=== PATIENT | female | born 1995 | race Caucasian/White ===

== ENCOUNTER 2023-11-21 05:57 | Observation (INO) | payer BC, OTHER ==
[~2023-11-21] VITALS: Ht 165.1 cm; Wt 78.0 kg
[2023-11-21] VITALS (8 sets, daily range): BP systolic 110–131; BP diastolic 63–94; TEMP 98–98.4; O2SAT 93–99
[~2023-11-21 05:57] MED LIST: LEVO50TA5 PO
[2023-11-21] MEDS ORDERED: ceFAZolin SOD 2 GM in IV 1 EA IV ONE (06:00)
[2023-11-21] MEDS ORDERED: LIDOCAINE 1% MDV 20ML VIAL As Ordered ONE (07:08)
[2023-11-21] MEDS ORDERED: EPINEPHrine INJ 1 MG/ML 1ML AMP As Ordered ONE (07:08)
[2023-11-21] MEDS ORDERED: ONDANSETRON 4MG 2ML VIAL As Ordered ONE (07:24)
[2023-11-21] MEDS ORDERED: LIDOCAINE 2% 100MG/5ML SDV (FOR ANES.) As Ordered ONE (07:24)
[2023-11-21] MEDS ORDERED: ROCURONIUM BROMIDE 50MG/5ML VIAL As Ordered ONE (07:24)
[2023-11-21] MEDS ORDERED: propofoL 200 MG/20 ML VIAL As Ordered ONE (07:24)
[2023-11-21] MEDS ORDERED: MIDAZOLAM INJ 2MG/2ML VIAL As Ordered ONE (07:25)
[2023-11-21] MEDS ORDERED: fentaNYL 250 MCG/5 ML INJECTION As Ordered ONE (07:25)
[2023-11-21] MEDS ORDERED: LR 1,000 ML IV SCH ×2 (07:25→20:00)
[2023-11-21] MEDS ORDERED: dexmedeTOMIDine (4MCG/ML)200MCG/50ML BTL (PRECEDEX) As Ordered ONE (07:34)
[2023-11-21] MEDS ORDERED: LACRILUBE (AKWA TEARS) OPHTH OINT 3.5GM As Ordered ONE (07:50)
[2023-11-21] MEDS ORDERED: ACETAMINOPHEN 1000MG 100ML IV BAG As Ordered ONE (07:50)
[2023-11-21] MEDS ORDERED: SUGAMMADEX SODIUM 500 MG/5 ML VIAL (BRIDION) As Ordered ONE (07:50)
[2023-11-21] MEDS: GENTAMICIN SULF 80MG/2ML VIAL As Ordered ONE (08:00)
[2023-11-21] MEDS: HEPARIN SOD (PORCINE) 5000UNITS/ML 1ML VIAL/SYRINGE SQ ONE (08:05)
[2023-11-21] MEDS ORDERED: METOCLOPRAMIDE INJ 10MG/2ML VIAL As Ordered ONE (08:59)
[2023-11-21] MEDS ORDERED: SEVOFLURANE INHAL SOLN 250 ML BTL As Ordered ONE (09:01)
[2023-11-21] MEDS ORDERED: HYDROmorphone HCL 2MG/ML 1ML VIAL As Ordered ONE (09:24)
[2023-11-21] MEDS ORDERED: ceFAZolin 2 GM/D5W 50 ML IV BAG As Ordered ONE (11:40)
[2023-11-21] MEDS: LR 1,000 ML IV SCH (12:30)
[2023-11-21] MEDS ORDERED: traMADol 50 MG TAB PO PRN (12:30)
[2023-11-21] MEDS ORDERED: fentaNYL 100 MCG/2 ML INJECTION IV PRN ×2 (12:30→20:00)
[2023-11-21] MEDS ORDERED: ONDANSETRON 4MG 2ML VIAL IV PRN ×3 (12:30→20:00)
[2023-11-21] MEDS ORDERED: PROMETHAZINE 25MG/ML 1ML VIAL IV PRN (12:30)
[2023-11-21] MEDS: ONDANSETRON 4MG 2ML VIAL IV PRN (13:04)
[2023-11-21] MEDS: HYDROMORPHONE HCL 0.5 MG/ 0.5 ML SYRINGE IV PRN (13:05)
[2023-11-21] MEDS: oxyCODONE 5MG TAB PO PRN (13:05)
[2023-11-21] MEDS ORDERED: fentaNYL 100 MCG/2 ML INJECTION As Ordered ONE (18:03)
[2023-11-21 18:05] LABS: HEMATOCRIT 37.2 % (36.0-47.0); MEAN CORPUSCULAR HEMOGLOBIN 33.1 pg (27.0-33.0); MEAN CORPUSCULAR HGB CONC 34.9 g/dl (32.0-36.5); MEAN CORPUSCULAR VOLUME 94.7 fl (80.0-96.0); PLATELET COUNT, AUTOMATED 137 10^3/uL (150-450); RED BLOOD COUNT 3.93 10^6/uL (4.00-5.40); WHITE BLOOD COUNT 9.9 10^3/uL (4.0-10.0)
[2023-11-21 18:28] LABS: BLOOD UREA NITROGEN 14 MG/DL (9-23); CARBON DIOXIDE LEVEL 28 MMOL/L (20-31); CHLORIDE LEVEL 104 MMOL/L (98-107); CREATININE FOR GFR 0.63 MG/DL (0.55-1.30); GLOMERULAR FILTRATION RATE > 60.0 (>60); GLUCOSE, FASTING 128 MG/DL (60-100); SODIUM LEVEL 137 MMOL/L (136-145)
[2023-11-21] MEDS ORDERED: METOCLOPRAMIDE INJ 10MG/2ML VIAL IV PRN (20:00)
[2023-11-21] MEDS ORDERED: oxyCODONE 5MG TAB PO PRN (20:00)
[2023-11-21] MEDS: ceFAZolin SOD 1 GM in D5W MINI-BAG PLUS 50 ML IV SCH (21:38)
[2023-11-21] MEDS: PERCOCET 5MG/325MG TAB PO PRN (22:45)
[2023-11-22] VITALS: BP 109/63; TEMP 98.8; O2SAT 95
[2023-11-22 01:00] VITALS: BP 100/67; TEMP 98.8; O2SAT 97
[2023-11-22 02:00] VITALS: BP 110/60; TEMP 99; O2SAT 97
[2023-11-22 06:00] VITALS: BP 116/72; TEMP 98.8; O2SAT 97
[2023-11-22] MEDS: ACETAMINOPHEN TAB 650MG DOSE (2X325MG) PO PRN (06:09)
[2023-11-22] MEDS ORDERED: PERCOCET PO (10:31)
== END 2023-11-22 11:35 | disposition home or self-care (01) ==
LOC: M SDC 05:57 → M RR INP 05:58 → M MS5PR 14:20
PROVIDERS: ADMIT Plastic Surgery Surgery of the Hand; ATTEND Plastic Surgery Surgery of the Hand
DX: N62 Hypertrophy of breast (principal); L76.82 Other postprocedural complications of skin and subcutaneous tissue; N64.89 Other specified disorders of breast; M54.6 Pain in thoracic spine; M54.2 Cervicalgia; E03.9 Hypothyroidism, unspecified; Z79.890 Hormone replacement therapy
CPT/HCPCS: 19020; 19318; 36415; 80048; 85027; 87635; 88304; 88305; 96374; 96376; C9290; J0131; J0171; J0665; J0690; J1100; J1170; J1580; J2250; J2405; J2765; J3010